=== PATIENT | female | born 1930 | race Caucasian/White ===

== ENCOUNTER → 2017-03-15 | Outpatient (CLI) | payer OTHER, BC | LOC: BHFA 08:30 | PROVIDERS: ATTEND Internal Medicine | DX: I47.1 Supraventricular tachycardia (principal); R94.31 Abnormal electrocardiogram [ECG] [EKG] ==

== ENCOUNTER → 2017-08-23 | Outpatient (CLI) | payer OTHER, BC | LOC: BHFA 15:30 | PROVIDERS: ATTEND Internal Medicine Cardiovascular Disease | DX: M79.609 Pain in unspecified limb (principal) ==

== ENCOUNTER 2018-02-27 00:13 | Inpatient (IN) | payer OTHER, BC ==
--- NOTE | 2018-02-27 00:17 | EDPHY ---
H & P Time Seen by Provider: 02/27/18 00:17 HPI/ROS: HPI CHIEF COMPLAINT: Chest pain, recent cardiac catheterization with stent placement at [facility]. HISTORY OF PRESENT ILLNESS: 87-year-old female, presents emergency room by private vehicle with her son for chest pain. Patient 5 days ago or Wednesday night went to [facility] for chest pain and was diagnosed with having a heart attack she states. She states she received cardiac catheterization to right groin with 1 drug eluting stent she believes to be the right coronary artery. She was told "she just made in time"she presents emergency room with chest pain similar to her previous chest pain she had earlier in the week. It is substernal at the end of her breast bone it does not radiate anywhere. She denies any jaw pain or arm pain, denies neck pain, denies back pain. The pain is substernal, dull, and started a half an hour ago she immediately came here to the emergency room by private vehicle with her son. She states that she skipped today of her medications including her Plavix. She was discharged on Wednesday did not get her medications filled till Wednesday. Current this time pain is 3/10. Past Medical History: Thyroid disease, hyperlipidemia, coronary artery disease with stent recent new stent, CLL Past Surgical History: PTCA through right groin stent placement. Social History: Denies daily use of drugs alcohol tobacco. Family History: Noncontributory ROS REVIEW OF SYSTEMS: A comprehensive 10 point review of systems is otherwise negative aside from elements mentioned in the history of present illness. Exam Constitutional elderly, frail, nontoxic triage nursing summary reviewed, vital signs reviewed, awake/alert. Eyes normal conjunctivae and sclera, EOMI, PERRLA. HENT normal inspection, atraumatic, moist mucus membranes, no epistaxis, neck supple/ no meningismus, no raccoon eyes. Respiratory clear to auscultation bilaterally, normal breath sounds, no respiratory distress, no wheezing. Cardiovascular rate normal, regular rhythm, no murmur, no edema, distal pulses normal. Gastrointestinal soft, non-tender, no rebound, no guarding, normal bowel sounds, no distension, no pulsatile mass. Genitourinary no CVA tenderness. Musculoskeletal right groin site with a cardiac catheterization was performed is clean, dry and intact bandage in place no hematoma. no midline vertebral tenderness, full range of motion, no calf swelling, no tenderness of extremities , no meningismus, good pulses, neurovascularly intact. Skin pink, warm, & dry, no rash, skin atraumatic. Neurologic awake, alert and oriented x 3, AAOx3, moves all 4 extremities equally, motor intact, sensory intact, CN II-XII intact, normal cerebellar, normal vision, normal speech. Psychiatric normal mood/affect. Heme/Lymph/Immune no lymphadenopathy. Differential diagnosis includes but is not limited to: ACS, aortic dissection, coronary artery laceration, in stent thrombosis, atypical chest pain, pneumothorax, pneumonia, pulmonary embolism, aortic dissection, congestive heart failure, tumor, musculoskeletal pain, esophageal pain, GERD, peptic ulcer disease, pancreatitis Medical Decision Making: Plan for this patient IV establishment full classroom monitor obtain EKG, obtain troponin, blood work, rule out coronary syndrome with troponin, chest x-ray, will obtain reports from [facility] will obtain vp lab report. 1234: At this time obtain medical force from [facility]. Re-evaluation: EKG interpretation by me on record in [facility] system. Impression time of EKG 0025, this is sinus rhythm rate of 73, LVH present. Q-waves noted in lead [address] elevation no ST depression no significant T-wave abnormalities. No evidence of acute ischemia on this EKG. Patient's troponin noted be elevated 0.67 this is most likely elevated from the recent cardiac catheterization [facility]. Addition the patient's D-dimer is elevated 2.25. In the setting of a recent cardiac catheterization with a positive D-dimer I will proceed with CT angiogram of the chest rule out aortic dissection given recent right groin catheterization it is a rare complication of aortic dissection. CT angiogram was performed due to elevated D-dimer this does show a right middle lobe and right upper lobe pulmonary embolism. Small volume. Additionally the aorta does have a descending aortic aneurysm measuring 4 cm. No dissection. Given the patient's elevated troponin, elevated D-dimer, pulmonary embolism seen on CT scan recent cardiac catheterization in the setting of chest pain will admit to the hospitalist service for further evaluation of this. I have ordered this patient Lovenox 1 milligram/kilogram. 0202: Of the patient about CT angiogram results of pulmonary emboli. Lovenox 1 milligram/kilogram has been ordered. No evidence aortic dissection. Plan will be for admission today for chest pain evaluation PEs and recent cardiac catheterization. Spoke with the hospitalist service Dr. Galindo Who agrees to admit. Source: Patient, Family Constitutional: Initial Vital Signs Temperature (C) 36.3 C 02/27/18 00:16 Heart Rate 77 02/27/18 00:16 Respiratory Rate 16 02/27/18 00:16 Blood Pressure 154/87 H 02/27/18 00:16 O2 Sat (%) 95 02/27/18 00:16 O2 Delivery Mode Nasal Cannula O2 (L/minute) 2 Allergies/Adverse Reactions: No Known Allergies Allergy (Verified 02/27/18 11:33) Home Medications: Medication Instructions Recorded ALPRAZolam [Xanax 0.25 MG (*)] 0.25 mg PO HS PRN 02/27/18 Aspirin [Aspirin 81mg (*)] 81 mg PO DAILY@06 02/27/18 Atorvastatin Calcium [Lipitor 20 20 mg PO DAILY 02/27/18 mg (*)] Clopidogrel Bisulfate [Clopidogrel] 75 mg PO DAILY 02/27/18 Hyoscyamine Sulfate [Levsin, 0.125 mg PO TID PRN 02/27/18 Hyomax-Sl 0.125 mg (*)] Levothyroxine [Synthroid 125 mcg 125 mcg PO DAILY06 02/27/18 (*)] Lisinopril [Zestril 5 mg (*)] 5 mg PO DAILY 02/27/18 Multivitamin/Iron/Folic Acid 1 each PO DAILY 02/27/18 [Multivitamin with Iron Tablet] Ondansetron HCl [Zofran] 8 mg PO PRN PRN 02/27/18 Pantoprazole Sodium [Protonix 40mg 40 mg PO DAILY 02/27/18 (*)] busPIRone [Buspar (*)] 7.5 mg PO BID 02/27/18 clonazePAM [Klonopin (*)] 0.5 mg PO TID PRN 02/27/18 Medical Decision Making - Data Points Laboratory Results: Laboratory Results 02/27/18 00:35 02/27/18 00:35 Medications Given: Aspirin (Aspirin) 81 mg PO DAILY@06 O[facility] Stop: 08/26/18 14:57 Last Admin: 02/27/18 15:56 Dose: 81 mg Buspirone HCl (Buspar) 7.5 mg PO BID [facility] Stop: 08/26/18 20:59 Last Admin: 02/27/18 20:46 Dose: Not Given Clopidogrel Bisulfate (Plavix) 75 mg PO DAILY [facility] Stop: 08/26/18 14:59 Last Admin: 02/27/18 15:56 Dose: 75 mg Enoxaparin Sodium (Lovenox) 70 mg SC BID [facility] Stop: 08/26/18 08:59 Last Admin: 02/27/18 20:46 Dose: 70 mg Discontinued Medications Aspirin (Aspirin) 324 mg PO EDNOW ONE Stop: 02/27/18 00:29 Last Admin: 02/27/18 00:43 Dose: 324 mg Enoxaparin Sodium (Lovenox) 60 mg SC EDNOW ONE Stop: 02/27/18 02:31 Last Admin: 02/27/18 02:11 Dose: 60 mg Enoxaparin Sodium (Lovenox) 60 mg SC EDNOW ONE Stop: 02/27/18 02:41 Last Admin: 02/27/18 03:16 Dose: Not Given Sodium Chloride (Ns) 1,000 mls @ 0 mls/hr IV EDNOW ONE; Wide Open PRN Reason: Protocol Stop: 02/27/18 00:29 Last Admin: 02/27/18 00:43 Dose: 1,000 mls Point of Care Test Results: Chemistry 02/27/18 00:37 POC Troponin I 0.67 ng/mL H ng/mL (0.00-0.08) Departure - Departure Disposition: [facility] Inpatient Acute Clinical Impression: Chest pain Qualifiers: Chest pain type: unspecified Qualified Code(s): R07.9 - Chest pain, unspecified Pulmonary embolism Qualifiers: Pulmonary embolism type: other Chronicity: acute Acute cor pulmonale presence: without acute cor pulmonale Qualified Code(s): I26.99 - Other pulmonary embolism without acute cor pulmonale Condition: Fair
--- NOTE | 2018-02-27 00:27 | CPEKG ---
Heart Rate: 73 RR Interval: 822 P-R Interval: 204 QRSD Interval: 86 QT Interval: 400 QTC Interval: 441 P Arden: 42 QRS Arden: -35 T Wave Arden: 38 EKG Severity - ABNORMAL ECG - EKG Impression: SINUS RHYTHM EKG Impression: LEFT AXIS DEVIATION EKG Impression: LEFT VENTRICULAR HYPERTROPHY Electronically Signed By: Martin Arbaham 27-Feb-2018 06:43:41
[2018-02-27] MEDS ORDERED: NITROGLYCERIN 0.4 MG BTL SL PRN ×3 (00:28→03:40)
[2018-02-27] MEDS ORDERED: ASPIRIN 81 MG CHEWABLE TAB PO ONE (00:28)
[2018-02-27] MEDS ORDERED: NS 1,000 ML IV ONE (00:28)
[2018-02-27 00:49] LABS: INR 0.88 (0.83-1.16); PROTIME(PATIENT) 12.2 SEC (12.0-15.0)
[2018-02-27] MEDS ORDERED: IOPAMIDOL (ISOVUE 370) 100 ML BTL IV ONE (01:06)
[2018-02-27] MEDS ORDERED: ENOXAPARIN 60 MG/0.6 ML SYR SC ONE ×3 (01:44→02:40)
[2018-02-27] MEDS ORDERED: ACETAMINOPHEN 325 MG TAB PO PRN ×2 (02:22→03:40)
[2018-02-27] MEDS ORDERED: ONDANSETRON 4 MG/2 ML VIAL IVP PRN ×2 (02:22→03:40)
[2018-02-27] MEDS ORDERED: ONDANSETRON DISINTEGRATING 4 MG TAB PO PRN ×3 (02:22→14:57)
[2018-02-27] MEDS ORDERED: LORazepam 0.5 MG TAB PO PRN ×2 (02:22→03:40)
[2018-02-27 02:56] LABS: PLATELET COUNT 144 10^3/uL (150-400)
--- NOTE | 2018-02-27 04:35 | PDGENHP ---
History and Physical - Chief Complaint Chest pain, shortness of breath - History of Present Illness Source-patient able to provide majority of the history. Overall is a fair historian. EMR was reviewed and case discussed with ED provider. HEIDY was also reviewed for recent hospital stay at [facility]. HPI - pleasant 87-year-old female with past medical history significant for CAD with recent STEMI 4 days ago s/p PCI with CHELLE x1 to distal RCA wtih 100% occlusion at [facility]. Her course was complicated by VFib arrest x2 with defibrillation even before cardiac cath commenced. She did have bradycardia during her hospital stay that required placement of a temporary transvenous pacer. Patient was just discharged Wednesday p.m. She did not receive her dosing of her evening medications which according to discharge summary med list on would have been Lipitor and Xanax as patient had not yet filled her prescriptions. Patient is able to report what her Plavix tab look like and states she did not miss any of these doses. She is pretty sure she took her aspirin which would have been in the morning as well. This evening at approximately 10:00 p.m. While trying to go to bed patient reports that she developed low sternal dull pressure pain which was reminiscent of her recent STEMI without the the previously associated symptoms today of radiating chest pain, diaphoresis, nausea vomiting. Patient reports that even before her STEMI she had been experiencing some dyspnea. She continued to have some shortness of breath at discharge which did appear to improve with diuresis per review of records. Patient states that she has continued to have some mild dyspnea and minimal ankle swelling. She denies any orthopnea or PND. In the emergency department patient received a full dose aspirin as well as nitroglycerin with resolution of her pain. Further evaluation revealed patient had a elevated D-dimer and subsequently went for CTA which was revealing for mild right upper and right lower subsegmental PEs. She received Lovenox in the emergency department at time of interview on the PCU floor patient reports that her symptoms had resolved entirely. History Information - Allergies/Home Medication List Allergies/Adverse Reactions: No Known Allergies Allergy (Unverified 02/27/18 00:19) Home Medications: ALPRAZolam 02/27/18 [Last Taken Unknown] Allopurinol 02/27/18 [Last Taken Unknown] Aspirin 02/27/18 [Last Taken Unknown] Atorvastatin Calcium 02/27/18 [Last Taken Unknown] CLONAZEPAM 02/27/18 [Last Taken Unknown] Clopidogrel 02/27/18 [Last Taken Unknown] Hyoscyamine Sulfate 02/27/18 [Last Taken Unknown] Levothyroxine 02/27/18 [Last Taken Unknown] Lisinopril 02/27/18 [Last Taken Unknown] Multivit,Calc,Mins/Iron/Folic 02/27/18 [Last Taken Unknown] Pantoprazole Sodium 02/27/18 [Last Taken Unknown] busPIRone 02/27/18 [Last Taken Unknown] I have personally reviewed and updated: family history, medical history, social history, surgical history - Past Medical History Additional medical history: STEMI/ CAD s/p PCI with CHELLE to distal RAD with associated VFib arrest, and bradycardia requiring temporary transvenous pacer. Hypothyroidism. Anxiety. Osteoarthritis. Urinary incontinence. GERD. CLL undergoing treatment with gazyva (followed by Dr. Cowan). Gout. - Surgical History Additional surgical history: Cardiac cath with CHELLE to distal RCA 100% occlusion 02/22/18. Tonsillectomy adenoidectomy. Cholecystectomy. Previous charting noting back surgery - Family History Additional family history: Father with history CAD. Mother with history of breast cancer cancer - Social History Smoking Status: Former smoker Tobacco Use: Cigarettes (Patient with a previous history of rare social cigarette use none recently) Alcohol Use: Occasionally Drug Use: None Additional social history: Patient lives independently at home. She has good support from her son who lives locally. Cor status-DNR DNI. Review of Systems Review of Systems: ROS: 10pt was reviewed & negative except for what was stated in HPI & below Constitutional: Denies: chills, fever, weakness EENMT: Reports: nose congestion, other (Postnasal drip). Denies: blurred vision , sore throat Cardiac: Reports: chest pain, edema (Bilateral ankles), palpitations (With elevated blood pressures nothing recently). Denies: lightheadedness, syncope Respiratory: Reports: cough (Chronic cough related to postnasal drip nonproductive), shortness of breath, other (See HPI) Gastrointestinal: Reports: abdominal distention (Associated with constipation), constipation. Denies: abdominal pain, nausea Genitourinary: Reports: incontinence. Denies: dysuria, hematuria, urgency Muscolosketal: Reports: no symptoms Skin: Reports: no symptoms Neurological: Reports: no symptoms. Denies: weakness Hematologic/Lymphatic: Reports: blood clots (Newly diagnosed), easy bruising Physical Exam Physical Exam: Selected Entries 02/27/18 00:16 Blood Pressure Automatic Method Heart Rate 77 Respiratory 16 Rate O2 Sat (%) 95 Temperature (C) 36.3 C Blood Pressure 154/87 H Mean Arterial 109 H Pressure (MAP) O2 Delivery Room Air Mode Temperature Oral Source Temp Pulse Resp BP Pulse Ox 36.3 C 67 19 138/61 H 96 02/27/18 00:16 02/27/18 03:00 02/27/18 03:00 02/27/18 03:00 02/27/18 03:00 Constitutional: no apparent distress, not in pain, chronically ill appearing, other (Pleasant elderly female is resting comfortably in bed awake. In good spirits. NAD.) Eyes: PERRL (Slightly decreased reactivity light bilaterally but symmetric.), anicteric sclera, EOMI, No scleral injection Ears, Nose, Mouth, Throat: moist mucous membranes, No poor dentition, No hard of hearing Cardiovascular: regular rate and rhythym, no murmur, rub, or gallop, edema ( Trace swelling bilateral ankles.), other (Right femoral cath site-dry clean and intact. Tegaderm is over the area. No surrounding erythema.) Peripheral Pulses: 1+: dorsalis-pedis (R), dorsalis-pedis (L) Respiratory: no respiratory distress, no rales or rhonchi, clear to auscultation , No expiratory wheeze, No inspiratory crackles, No respiratory distress Gastrointestinal: normoactive bowel sounds, soft, non-tender abdomen, no palpable masses, distension (Soft but full abdomen.), No tenderness Genitourinary: no bladder tenderness, No carranza in urethra Skin: warm, normal color, no rashes or abrasions, No rash Musculoskeletal: full muscle strength (Patient does request a little assistance when trying to sit upright in bed otherwise is able to move all her extremities with strength and 5/5 upper lower extremities.) Neurologic: AAOx3, sensation intact bilaterally, other (Grossly nonfocal exam.) , No facial droop Psychiatric: interacting appropriately, not anxious, not encephalopathic, thought process linear, No poor insight, No poor judgement, No poor memory Lab Data & Imaging Review 02/27/18 00:35 02/27/18 00:35 WBC 4.89 10^3/uL (3.80-9.50) 02/27/18 00:35 RBC 3.60 10^6/uL (4.18-5.33) L 02/27/18 00:35 Hgb 11.2 g/dL (12.6-16.3) L 02/27/18 00:35 Hct 35.0 % (38.0-47.0) L 02/27/18 00:35 MCV 97.2 fL (81.5-99.8) 02/27/18 00:35 MCH 31.1 pg (27.9-34.1) 02/27/18 00:35 MCHC 32.0 g/dL (32.4-36.7) L 02/27/18 00:35 RDW 14.6 % (11.5-15.2) 02/27/18 00:35 Plt Count 144 10^3/uL (150-400) L 02/27/18 00:35 MPV 11.0 fL (8.7-11.7) 02/27/18 00:35 Neut % (Auto) 50.7 % (39.3-74.2) 02/27/18 00:35 Lymph % (Auto) 35.8 % (15.0-45.0) 02/27/18 00:35 [place] % (Auto) 8.6 % (4.5-13.0) 02/27/18 00:35 Eos % (Auto) 4.3 % (0.6-7.6) 02/27/18 00:35 Baso % (Auto) 0.6 % (0.3-1.7) 02/27/18 00:35 Nucleat RBC Rel Count 0.0 % (0.0-0.2) 02/27/18 00:35 Absolute Neuts (auto) 2.48 10^3/uL (1.70-6.50) 02/27/18 00:35 Absolute Lymphs (auto) 1.75 10^3/uL (1.00-3.00) 02/27/18 00:35 Absolute Monos (auto) 0.42 10^3/uL (0.30-0.80) 02/27/18 00:35 Absolute Eos (auto) 0.21 10^3/uL (0.03-0.40) 02/27/18 00:35 Absolute Basos (auto) 0.03 10^3/uL (0.02-0.10) 02/27/18 00:35 Absolute Nucleated RBC 0.00 10^3/uL (0-0.01) 02/27/18 00:35 Immature Gran % 0.0 % (0.0-1.1) 02/27/18 00:35 Immature Gran # 0.00 10^3/uL (0.00-0.10) 02/27/18 00:35 PT 12.2 SEC (12.0-15.0) 02/27/18 00:35 INR 0.88 (0.83-1.16) 02/27/18 00:35 APTT 22.5 SEC (23.0-38.0) L 02/27/18 00:35 D-Dimer 2.25 ug/mLFEU (0.00-0.50) H 02/27/18 00:35 Sodium 141 mEq/L (135-145) 02/27/18 00:35 Potassium 4.6 mEq/L (3.3-5.0) 02/27/18 00:35 Chloride 111 mEq/L (97-110) H 02/27/18 00:35 Carbon Dioxide 25 mEq/l (22-31) 02/27/18 00:35 Anion Gap 5 mEq/L (8-16) L 02/27/18 00:35 BUN 50 mg/dL (7-23) H 02/27/18 00:35 Creatinine 1.2 mg/dL (0.6-1.0) H 02/27/18 00:35 Estimated GFR 43 02/27/18 00:35 Glucose 108 mg/dL (70-100) H 02/27/18 00:35 Calcium 9.4 mg/dL (8.5-10.4) 02/27/18 00:35 Magnesium 2.4 mg/dL (1.6-2.3) H 02/27/18 00:35 Total Bilirubin 0.4 mg/dL (0.1-1.4) 07/22/18 00:35 Conjugated Bilirubin 0.4 mg/dL (0.0-0.5) 02/27/18 00:35 Unconjugated Bilirubin 0.0 mg/dL (0.0-1.1) 02/27/18 00:35 AST 33 IU/L (14-46) 02/27/18 00:35 ALT 29 IU/L (9-52) 02/27/18 00:35 Alkaline Phosphatase 58 IU/L (38-126) 02/27/18 00:35 POC Troponin I 0.67 ng/mL (0.00-0.08) H 02/27/18 00:37 NT-Pro-B Natriuret Pep 4560 pg/mL (0-450) H 02/27/18 00:35 Total Protein 5.7 g/dL (6.3-8.2) L 02/27/18 00:35 Albumin 3.3 g/dL (3.5-5.0) L 02/27/18 00:35 Lipase 174 IU/L (23-300) 02/27/18 00:35 Imaging Review: Chest x-ray image reviewed myself report is still pending. No acute infiltrates. Tortuous aorta. Mild cardiomegaly. Visualized and Interpreted Chest x-ray results: Yes Chest X-Ray results: no infiltrate Visualized and Interpreted imaging results: Yes Interpretation: Preliminary report for CTA of the chest was reviewed. Is noted below: CT PE study. Mild volume PE subsegmental branches RUL and RLL. Extensive calc and noncalc plaques in thoracic aorta w/o dissection. Mild 4cm TAA just above diaphragm. Mild interstitial lung dz. Spoke w Dr Huitron at 145am. Finer Visualized and Interpreted EKG results: Yes EKG additional interpertation: NSR 70s. Lad. LVH. No acute ST changes. QTC 441. Assessment & Plan Assessment: Pleasant 87-year-old female with history of CAD with recent STEMI s/p PCI and CHELLE to distal RCA 4 days ago, anxiety, hypothyroidism, GERD, CLL who presents emergency department today with complaints of lower sternal chest pain and dyspnea. #Chest pain (Acute) - D-dimer was noted to be elevated and CT was positive for mild subsegmental bilateral PEs. Patient has received therapeutic dosing of Lovenox in the emergency department which will plan to continue until we can ascertain which anticoagulant would be both covered by insurance and provide most benefit for the patient to ensure long-term success of compliance. patient status post recent PCI with stent. Patient does recall taking her Plavix and she thinks aspirin in the morning without missing any doses. She missed single dose of her evening medications which according to discharge summary should have been Lipitor and Xanax. Patient received a dose nitroglycerin in the emergency department as well as Lovenox. Her chest pain and dyspnea have improved. Patient's troponin is minimally elevated at 0.6 but not surprising her peak troponin last measured per [facility] records was 14.5 after [place]. Patient without any evidence of decompensated CHF although she did have some mild diminished LV EF (46-50%) post [place]. Will plan to continue patient 's lisinopril. She was not discharged on beta pb due to bradycardia requiring temporary transvenous pacer. Heart rate currently in the 60s to 70s. Continue aspirin and Plavix will need to monitor closely for any evidence of bleeding given addition of anticoagulation. Patient does have a mild anemia and minimal thrombocytopenia with a history of CLL undergoing Gazyva therapy. #Pulmonary embolism (Acute) - Lovenox received in the emergency department will continue until best long-term anticoagulation option can be determined in the morning. Patient without any hypoxia or tachycardia. Room air challenge to ensure patient does not require oxygen supplementation. #CAD - continue atorvastatin, aSA, plavix, lisinopril. not on bb 2/2 hx of bradycardia post [place] requiring temporary pacer. #nancy - patient received 1 liter IVF in ED. some mild LV dysfunction. tolerating po. holding further fluids at this time. repeat bmp in AM. #anemia - no evidence of active bleeding. monitor with DAPT and now anticoagulation. #thrombocytopenia - minimally decreased. no active bleeding. monitor with DAPT and anticoagulation. # mild thoracic aortic aneurysm - noted on CTA. 3.9 cm. continued monitoring outpatient. #hypoalbuminemia - likely related to patient's acute and chronic medical issues. chronic medical issues # hypothyroidism - resume patient l-thyroxine. recent TSH obtained at [facility] reveals TSH >9.0 obtained surrounding AMI. did not locate additional TFTs via [facility]. follow up with PCP for re-testing in a few weeks. #CLL - patient receiving gazyva infusions. followed by Dr. Randhawa #gerd - protonix #anxiety - supportive care. resume busbar and xanax prn. #constipation - bowel regimen ordered FEN - SLIV. s/p 1 liter IVF in ED. electrolyte monitoring and replacement if needed. NPO pending repeat cardiac enzymes and Cardiology evaluation. PPX-SCDs. Therapeutic Lovenox received in the ED. Will continue until long- term anticoagulation can be decided on by day team. Cor status-DNR DNI. Disposition patient admitted to observation status on PCU floor for close cardiac monitoring. Her chest pain has resolved. Patient has been started on therapeutic anticoagulation and her dyspnea has resolved.
--- NOTE | 2018-02-27 09:49 | HOSPPROG ---
Hospitalist Progress Note Assessment/Plan: # acute PE - cont lovenox today - will change to NOAC prior to dc (discussed with Dr Randhawa) - will plan for echo before she leaves # CAD, recent STEMI s/p PCI top RCA, elev trop - suspect elev trop from STEMI - Dr Henderson to consult - cont asa/plavix/statin # CLL, currently under treatment with Dr Randhawa with gazyva # thoracic aortic aneurysm - 3.9cm; outpatient follow-up # gerd - protonix # anxiety - buspar, xanax Subjective: hungry; CP resolved Objective: Vital Signs Temp Pulse Resp BP Pulse Ox 36.8 C 63 12 153/75 H 98 02/27/18 07:48 02/27/18 07:48 02/27/18 07:48 02/27/18 07:48 02/27/18 07:48 02/26/18 02/27/18 02/28/18 05:59 05:59 05:59 Intake Total 250 Balance 250 PT 12.2 SEC (12.0-15.0) 02/27/18 00:35 INR 0.88 (0.83-1.16) 02/27/18 00:35 chart reviewed tele reviewed discussed with Dr Henderson 35 minutes of direct, face to face patient care from 9:10-9:45 - Physical Exam Constitutional: no apparent distress, not in pain Cardiovascular: regular rate and rhythym, no murmur, rub, or gallop Respiratory: no respiratory distress, no rales or rhonchi, clear to auscultation ICD10 Worksheet Patient Problems: Problems Problem Status Onset Chest pain Acute Pulmonary embolism Acute
[2018-02-27] MEDS: ENOXAPARIN 80 MG/0.8 ML SYR SC SCH ×2 (10:22→20:46)
--- NOTE | 2018-02-27 10:57 | ASMTCMCOM ---
CM Note CM Note Notes: 02/27/2018 Case Management Note Met w/pt. Signed MENDEZ. Pt admitted for assessment and treatment of possible PE and chest pain. Pt lives independently in her own home in [facility]. 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 Her son Chalo [phone] lives nearby. Pt has tractor mechanic helper for lawn care and housekeeping. Pt is able to drive and has no difficulty obtaining groceries or preparing meals. There are no PT or OT evals ordered at this time. Dr. Randhawa is coordinating her cancer treatment. Case Management d/c poc: anticipating independent with follow up as directed. Case Management available if needs change. Date Signed: 02/27/2018 10:57 AM Electronically Signed By:Alaina Garrett RN
[2018-02-27] MEDS ORDERED: clonazePAM 0.5 MG TAB PO PRN (14:57)
[2018-02-27] MEDS ORDERED: HYOSCYAMINE SULFATE 0.125 MG TAB PO PRN (14:57)
[2018-02-27] MEDS ORDERED: ALPRAZolam 0.25 MG TAB PO PRN (14:57)
[2018-02-27] MEDS: CLOPIDOGREL BISULFATE 75 MG TAB PO SCH (15:56)
[2018-02-27] MEDS: ASPIRIN 81 MG CHEWABLE TAB PO SCH (15:56)
[2018-02-27] MEDS: busPIRone 5 MG TAB PO SCH (20:46)
[2018-02-28] MEDS: ASPIRIN 81 MG CHEWABLE TAB PO SCH (05:38)
[2018-02-28] MEDS: LEVOTHYROXINE 125 MCG TAB PO SCH (05:38)
[2018-02-28] MEDS ORDERED: SODIUM CL NASAL 45 ML BTL EACHNARE PRN (08:04)
[2018-02-28] MEDS: ATORVASTATIN CALCIUM 20 MG TAB PO SCH (08:20)
[2018-02-28] MEDS: CLOPIDOGREL BISULFATE 75 MG TAB PO SCH (08:20)
[2018-02-28] MEDS: PANTOPRAZOLE SODIUM 40 MG TAB PO SCH (08:20)
[2018-02-28] MEDS: busPIRone 5 MG TAB PO SCH ×2 (08:20→22:35)
[2018-02-28] MEDS: ENOXAPARIN 80 MG/0.8 ML SYR SC SCH ×2 (08:21→22:35)
[2018-02-28] MEDS: LISINOPRIL 5 MG TAB PO SCH (08:21)
[2018-02-28] MEDS: MULTIVITAMINS W-MINERALS 1 EACH TAB PO SCH (08:21)
--- NOTE | 2018-02-28 13:35 | HOSPPROG ---
Hospitalist Progress Note Assessment/Plan: # acute PE - cont lovenox today - will change to NOAC prior to dc (discussed with Dr Randhawa) - check echo today # CAD, recent STEMI s/p PCI top RCA, elev trop - suspect elev trop from STEMI - cont asa/plavix/statin # CLL, currently under treatment with Dr Randhawa with patrice # thoracic aortic aneurysm - 3.9cm; outpatient follow-up # gerd - protonix # anxiety - buspar, xanax Subjective: c/o ongoing dyspnea; not clearly exertional; seen with her dtr in law Objective: Vital Signs Temp Pulse Resp BP Pulse Ox 36.7 C 61 20 147/73 H 95 02/28/18 11:00 02/28/18 11:00 02/28/18 11:00 02/28/18 11:00 02/28/18 11:00 Laboratory Results 02/28/18 03:47 02/27/18 02/28/18 03/01/18 05:59 05:59 05:59 Intake Total 250 600 Balance 250 600 PT 12.2 SEC (12.0-15.0) 02/27/18 00:35 INR 0.88 (0.83-1.16) 02/27/18 00:35 echo personally reviewed - Physical Exam Constitutional: no apparent distress, appears nourished Eyes: anicteric sclera Ears, Nose, Mouth, Throat: hearing normal Cardiovascular: No edema Respiratory: no respiratory distress, no rales or rhonchi, clear to auscultation Gastrointestinal: No distension Genitourinary: No carranza in urethra Skin: warm Musculoskeletal: full muscle strength Neurologic: AAOx3 ICD10 Worksheet Patient Problems: Problems Problem Status Onset Chest pain Acute Pulmonary embolism Acute
--- NOTE | 2018-02-28 15:56 | ECHO ---
[email or web address] [address] [address] Main: [phone] Fax: [email or web address] Echocardiogram Name: JIM TORRES MR#: [id number] Study Date: 02/28/2018 Study Time: 02:01 PM Date of : 1930 Age: 87 year(s) Height: 170.2 cm (67 in.) Weight: 72.12 kg (159 lb.) BSA: 1.83 m2 Gender: Female Examination: Echo Indication: Cardiac: dyspnea Image Quality: Adequate Contrast: Requested by: Robbie Rahman BP: 147 mmHg/73 mmHg Heart Rate: Rhythm: Indication: Cardiac: dyspnea Procedure Staff Set Up Operator: Krupa Castro RDCS Reading Physician: Alex Henderson MD Requesting Provider: Conclusions: Normal size left ventricle. Mild concentric LV hypertrophy. Normal global systolic LV function. EF is 60 %. No regional wall motion abnormality. Diastolic dysfunction is present. . Normal size right ventricle. The left atrium is mildly dilated. The mitral valve is normal in appearance and function. Mild to moderate mitral regurgitation. No mitral stenosis is present. Aortic sclerosis is present. There is no significant aortic valve regurgitation. No aortic valve stenosis is present. Mild tricuspid regurgitation is present. The pulmonary artery pressure is normal. Right ventricular systolic pressure measures 33mmHg. There is no pulmonic regurgitation seen. Normal size ascending aorta measuring 3.1 cm. No previous. Measurements: Chambers Valvular Assessment AV/MV Valvular Assessment TV/PV Normal Normal Normal Name Value Range Name Value Range Name Value Range Ao Margie (2D): 3.1 cm (1.4 cm-2.6 AV Vmax: 1.58 m/s (1 m/s-1.7 TR Vmax: 2.65 mm/s ( - ) cm) m/s) TR PGmax: 28 mmHg ( - ) IVSd (2D): 1.3 cm (0.6 cm-1.1 AV maxP mmHg ( - ) syst. PAP: 33 mmHg ( - ) cm) AV meanP mmHg ( - ) Patient: JIM TORRES Study Date: 02/28/2018 Page 1 of 2 02:01 PM LVDd (2D): 4.3 cm (3.9 cm-5.3 NASH (VTI): 2.2 cm ( - ) PV Vmax: 0.92 m/s (0.6 m/s-0.9 cm) MV E Vmax: 0.56 m/s ( - ) m/s) LVDs (2D): 3.1 cm (2.1 cm-4 MV A Vmax: 0.99 m/s ( - ) PV PGmax: 3 mmHg ( - ) cm) MV E/A: 0.57 ( - ) LVPWd (2D): 1.2 cm ( - ) MV PHT: 0.103 s ( - ) LVOTd 1.9 cm 1.9 cm mm MVA (PHT): 2.1 s ( - ) LVEF (BP): 60 % (>=55 %) RVDd(2D): 3.4 cm (1.9 cm-3.8 cmmm) Continued Measurements: Chambers Valvular Assessment AV/MV Valvular Assessment TV/PV Name Value Name Value Name Value LADs: 3.3 cm MV DecTime: 306 m/s CVP (est.): 5 mmHg LADs Lon.0 cm MV E' Septal: 0.05 m/s LA Area: 21.4 cm2 MV E/E' Septal: 10.90 LA Volume: 70 ml MV E/E' Lateral: 6.40 LA Volume Index: 38.3 ml/m2 RA Area: 21.2 cm2 Additional Vessels Name Value Ao Ascendin.1 cm Findings: Left Ventricle: Normal size left ventricle. Mild concentric LV hypertrophy. Normal global systolic LV function. EF is 60 %. No regional wall motion abnormality. Diastolic dysfunction is present. . Right Ventricle: Normal size right ventricle. Left Atrium: The left atrium is mildly dilated. Right Atrium: The right atrium is normal in size. Mitral Valve: The mitral valve is normal in appearance and function. Mild to moderate mitral regurgitation. No mitral stenosis is present. Aortic Valve: The aortic valve is tri-leaflet. Aortic sclerosis is present. There is no significant aortic valve regurgitation. No aortic valve stenosis is present. Tricuspid Valve: The tricuspid valve is normal in appearance and function. Mild tricuspid regurgitation is present. The pulmonary artery pressure is normal. Right ventricular systolic pressure measures 33mmHg. Pulmonic Valve: The pulmonic valve is normal in appearance and function. There is no pulmonic regurgitation seen. Aorta: The aorta is normal. Normal size aortic root measuring 3.1 cm. Normal size ascending aorta measuring 3.1 cm. Pericardium: No pericardial effusion. No pleural effusion. (No Signature Object) Patient: JIM TORRES Study Date: 02/28/2018 Page 2 of 2 02:01 PM [id number]
--- NOTE | 2018-02-28 17:06 | PDMN ---
Medical Necessity Medical necessity: Pt meets INPT criteria per MD as of 02/28/18 and [facility] M-290 Pulmonary Embolism (est. LOS >2 MN for ongoing eval/mgmt of acute PE with ongoing dyspnea; hx recent STEMI s/p PCI, elevated troponin, CLL, thoracic aortic aneurysm).
[2018-02-28] MEDS: DEXAMETHASONE 4 MG TAB PO SCH ×2 (18:35→23:32)
[2018-03-01] MEDS: LEVOTHYROXINE 125 MCG TAB PO SCH (06:03)
[2018-03-01] MEDS: ASPIRIN 81 MG CHEWABLE TAB PO SCH (06:03)
[2018-03-01] MEDS: DEXAMETHASONE 4 MG TAB PO SCH ×2 (06:03→11:33)
[2018-03-01] MEDS: ATORVASTATIN CALCIUM 20 MG TAB PO SCH (08:27)
[2018-03-01] MEDS: LISINOPRIL 5 MG TAB PO SCH (08:28)
[2018-03-01] MEDS: PANTOPRAZOLE SODIUM 40 MG TAB PO SCH (08:29)
[2018-03-01] MEDS: busPIRone 5 MG TAB PO SCH (08:30)
[2018-03-01] MEDS: CLOPIDOGREL BISULFATE 75 MG TAB PO SCH (08:30)
[2018-03-01] MEDS: MULTIVITAMINS W-MINERALS 1 EACH TAB PO SCH (08:31)
[2018-03-01] MEDS: ENOXAPARIN 80 MG/0.8 ML SYR SC SCH (08:31)
[2018-03-01 08:34] VITALS: BP 146/79
--- NOTE | 2018-03-01 12:05 | ASDISCHSUM ---
Discharge Information Plan Status:Home with No Needs Medically Cleared to Leave:03/01/2018 Discharge Date:03/01/2018 CM D/C Disposition:Home, Routine, Self-Care ADT D/C Disposition: Projected Discharge Date:03/01/2018 Transportation at D/C: Discharge Delay Reason: Follow-Up Date:03/01/2018 Discharge Slot: Final Diagnosis: Placement Information Patient Contact Information Contact Name:ARIANE Relationship:Matthew Address: Work Phone: City: [facility] Phone: State/LivePerson Code: Email: Financial Information Financial Class:Medicare Primary Plan Desc:MEDICARE INPATIENT Primary Plan Number:[id number] Secondary Plan Desc:BC OUT OF STATE [facility] Secondary Plan Number:[id number] Assessment Information [facility] CM Progress Note CM Note CM Note Notes: 02/27/2018 Case Management Note Met w/pt. Signed VANESSA. Pt admitted for assessment and treatment of possible PE and chest pain. Pt lives independently in her own home in [place] [place]. 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 Her son Chalo [phone] lives nearby. 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 Pt is able to drive and has no difficulty obtaining groceries or preparing meals. There are no PT or OT evals ordered at this time. Dr. Randhawa is coordinating her cancer treatment. Case Management d/c poc: anticipating independent with follow up as directed. Case Management available if needs change. Date Signed: 02/27/2018 10:57 AM Electronically Signed By:Alaina Garrett RN Case Management Discharge Plan Note Case Management Discharge Discharge Order Complete? Answers: Yes Patient to Obtain Answers: Independently Medications Discharge Comments Notes: 03/01/2018 Case Management Note Pt to discharge home independently with follow up as directed. Pt to follow up with Dr. Randhawa on 03/03/2018. Pt alerted to potential cost for Gloria and is agreeable to paying out of pocket. No further case management d/c needs identified. Date Signed: 03/01/2018 12:04 PM Electronically Signed By:Alaina Garrett RN Intervention Information Intervention Type:*MENDEZ-Signed Date of Service:02/27/2018 10:52 AM Patient Type:Observation Staff Member:QUANG Garrett, Alaina Hours: Discipline: Severity: Comment:
--- NOTE | 2018-03-01 12:06 | ASMTLACE ---
LACE Length of stay for Answers: Less than 1 day current admission Acuity / Level of Answers: Yes Care: Did the patient have an inpatient admission? Comorbidities - select Answers: Any tumor (including all that apply lymphoma or leukemia) Coronary Artery Disease Previous myocardial infarction Other Notes: hypothyroidism, osteoar thr itis, GERD, urinary incontinence, Gout, CLL treated with gazyva # of Emergency department Answers: 1-2 visits in the last 6 months Social determinants Answers: Mental health diagnosis (anxiety, depression, pers onality disorders, etc.) Score: 13 Date Signed: 03/01/2018 12:05 PM Electronically Signed By:Alaina Garrett RN
--- NOTE | 2018-03-01 12:18 | GDS ---
[f rep st] DISCHARGE SUMMARY ALL DIAGNOSES: 1. Acute pulmonary embolus. 2. Coronary artery disease, status post recent ST-elevation myocardial infarction, with a percutaneo us coronary intervention to her right coronary artery. 3. Chronic lymphocytic leukemia, under treatment with Dr. Randhawa. 4. Thoracic aortic aneurysm at 3.9 cm. 5. Gastroesophageal reflux disease. 6. Anxiety. HOSPITAL COURSE: An 87-year-old female, who was recently treated for a STEMI at [facility]. She prese nted with ongoing dyspnea. CT angiogram found mild volume of bilateral pulmonary embolic disease. S he was started on Lovenox. She has tolerated anticoagulation without any issues. On the day of disc harge, she will be transitioned to Eliquis. I have given her 5 mg b.i.d., foregoing the higher dose, because she is already on aspirin, as well as Plavix. I explained to her the risks of bleeding give n these 3 medications, and she understands very well She is treated for her CLL by Dr. Randhawa. She has a followup appointment with him on 03/03 at 9 a. m. BILLING: I spent more than 30 minutes on the day of discharge coordinating care. /[id number]/MODL
== END 2018-03-01 12:45 | disposition home or self-care (01) | DRG 175 ==
LOC: F2W 01:50 → INTOOBSV 01:50 → OBSVTOIN 02-28 13:33
PROVIDERS: ADMIT Family Medicine; ATTEND Student in an Organized Health Care Education/Training Program
DX: I26.99 Other pulmonary embolism without acute cor pulmonale (principal); I25.10 Atherosclerotic heart disease of native coronary artery without angina pectoris; I71.2 Thoracic aortic aneurysm, without rupture; C91.10 Chronic lymphocytic leukemia of B-cell type not having achieved remission; I21.3 ST elevation (STEMI) myocardial infarction of unspecified site; E03.9 Hypothyroidism, unspecified; M19.90 Unspecified osteoarthritis, unspecified site; M10.9 Gout, unspecified; K21.9 Gastro-esophageal reflux disease without esophagitis; F41.9 Anxiety disorder, unspecified; Z66 Do not resuscitate; Z95.5 Presence of coronary angioplasty implant and graft; Z87.891 Personal history of nicotine dependence
CPT/HCPCS: 84484-PO; G0378; J1650; Q9967

== ENCOUNTER 2018-09-08 15:24 | Emergency (ER) | payer OTHER, BC ==
[2018-09-08] MEDS ORDERED: NS 500 ML IV ONE (15:27)
--- NOTE | 2018-09-08 15:51 | EDPHY ---
H & P Time Seen by Provider: 09/08/18 15:27 HPI/ROS: HPI Short of breath, lightheaded. 88-year-old female by private vehicle. This patient was sent from the office of her primary care physician Dr. Dunn. She has a history of CLL, coronary artery disease and pulmonary embolism. She is currently on Eliquis and Plavix. She reports that over the last 2 days she has experienced increased dyspnea with exertion, generalized fatigue and associated lightheadedness. She denies any chest pain. She is not on oxygen at home. She currently is not on chemotherapy. ROS: Constitutional: No fever, no chills. As above. Eyes: No discharge. No changes in vision. ENT: No sore throat. No nasal congestion or rhinorrhea. Respiratory: No cough. As above. Cardiac: No chest pain, no palpitations. Gastrointestinal: No abdominal pain, no vomiting, no diarrhea. Genitourinary: No hematuria. No dysuria or increased frequency with urination. Musculoskeletal: No back pain. No neck pain. No myalgias or arthralgias. Skin: No rashes. Neurological: No headache. No focal weakness or altered sensation. Past medical history: Thoracic aortic aneurysm at 3.9 cm, anxiety, hypertension , GERD, CLL not on chemotherapy now Dr. Randhawa is her oncologist, coronary artery disease/STEMI/PCI to distal RAD with associated VFib arrest, and bradycardia requiring temporary pacemaker. Distal RCA 100% occlusion in February of 2017 Hypothyroidism, osteoarthritis, urinary incontinence, cholecystectomy. She is not on a beta-pb or calcium channel pb. As above. Social history: Former smoker. She lives independently at home. She is from [place] originally. She has good support from her son who lives locally. Cor status is DNR. Physical Exam: General Appearance: Alert, pleasant, she is not in distress. This patient is responding to questions appropriately and in full sentences. This patient appears well-hydrated and well-nourished. Eyes: Pupils equal and round no pallor or injection. No lid edema, erythema or injection. Respiratory: There are no retractions, lungs are clear to auscultation with good air movement bilaterally. No tachypnea. Cardiovascular: Regular rate and rhythm. Bradycardia. No murmur is appreciated. Gastrointestinal: Abdomen is soft and nontender, no masses, bowel sounds normal. No focal tenderness at McBurney's point. No Garrett sign. Neurological: Motor sensory function is grossly intact. Cranial nerves are normal. Gait is normal. Skin: Warm and dry, no rashes. Musculoskeletal: Neck is supple and nontender. Extremities are symmetrical. All joints range without pain or impingement. Psychiatric: No agitation. No depression. Database: EKG: EKG time is 4:11 p.m.; EKG shows a narrow complex sinus bradycardia with a ventricular rate of 53. Left ventricular hypertrophy is noted. The FL, QRS, QT intervals are within normal limits. There are no ST-T wave changes indicative of ischemic or injury pattern. No evidence of right heart strain. Interpreted by me. Imaging: CTA of chest; no evidence of pulmonary embolism or dissection. Her heart is enlarged. There is no pulmonary edema, pleural effusion or pericardial effusion. No significant acute pathology. Results were discussed with staff radiologist Dr. Damion Jay. Procedures: Emergency department course: Triage vital signs reviewed. She is hypertensive with a diastolic pressure of 129, she is bradycardic with a resting heart rate of 54. Pulse oximetry is 96% on room air. She is afebrile. IV was placed. She was placed on a director of cardiac cath lab. She will be given IV normal saline [address] angiogram. She consents to emergency department workup. EKG obtained and reviewed by myself. 4:20 p.m., the patient's creatinine is 1.3. Her BUN is 31. We are currently hydrating her. I discussed obtaining CT angiogram with staff radiologist Dr. Shahram Elliott. He agrees with getting this study. We will hydrate the patient before and after. 5:15 p.m., the patient was re-evaluated, she was resting comfortably. She currently has no complaints. Results of her diagnostic workup were discussed with her. Her vital signs were reviewed. She has been hypertensive in the emergency department but asymptomatic. I discussed admission with her. At this time she does not want to be admitted. I will contact her primary care physician to arrange close follow-up. 5:30 p.m., I spoke with Dr. Mcdaniels who is on-call for her primary care physician Dr. Pineda. They will contact the patient and get her in for follow-up tomorrow in their office. I discussed my concern about her uncontrolled hypertension. The results of her emergency department workup were discussed with Dr. Mcdaniels in detail. 6:00 p.m., the patient was re-evaluated, she is dressed, sitting upright on the gurney and ready to go home. She has been up and ambulatory in the emergency department with a normal gait. Results of her diagnostic testing were discussed with her thoroughly. I discussed follow-up with her primary care physician and my concern about her high blood pressure. Return to emergency department precautions were thoroughly reviewed with her. All of her questions were answered. She was discharged from the emergency department in good condition. Differential Diagnosis: The differential diagnosis on this patient includes but is not limited to congestive heart failure, hypothyroid, urinary tract infection, pulmonary embolism, acute coronary syndrome. This represents a partial list of diagnoses considered. These considerations are based on history, physical exam, past history, reassessment and diagnostic testing. Smoking Status: Former smoker Constitutional: Initial Vital Signs Temperature (C) 36.4 C 09/08/18 15:34 Heart Rate 54 L 09/08/18 15:34 Respiratory Rate 20 09/08/18 15:34 Blood Pressure 164/129 H 09/08/18 15:34 O2 Sat (%) 96 09/08/18 15:34 O2 Delivery Mode Room Air Allergies/Adverse Reactions: No Known Allergies Allergy (Verified 09/08/18 15:34) Home Medications: Medication Instructions Recorded ALPRAZolam [Xanax 0.25 MG (*)] 0.25 mg PO HS PRN 02/27/18 Atorvastatin Calcium [Lipitor 20 20 mg PO DAILY 02/27/18 mg (*)] Clopidogrel Bisulfate [Clopidogrel] 75 mg PO DAILY 02/27/18 Hyoscyamine Sulfate [Levsin, 0.125 mg PO TID PRN 02/27/18 Hyomax-Sl 0.125 mg (*)] Levothyroxine [Synthroid 125 mcg 125 mcg PO DAILY06 02/27/18 (*)] Lisinopril [Zestril 5 mg (*)] 5 mg PO DAILY 02/27/18 Multivitamin/Iron/Folic Acid 1 each PO DAILY 02/27/18 [Multivitamin with Iron Tablet] Ondansetron HCl [Zofran] 8 mg PO PRN PRN 02/27/18 Pantoprazole Sodium [Protonix 40mg 40 mg PO DAILY 02/27/18 (*)] busPIRone [Buspar (*)] 7.5 mg PO BID 02/27/18 Apixaban [Eliquis] 5 mg PO BID #60 tab 03/01/18 Medical Decision Making - Diagnostics Imaging Results: Imaging Impressions Chest/Thorax CTA 09/08/18 16:17 Impression: 1. No evidence for pulmonary embolus. Atherosclerotic change in the thoracic aorta without evidence for dissection. 2. Stable cardiomegaly. No evidence for pericardial effusion. 3. Other stable chronic findings as above. Results called and discussed with Kathie Shelby MD, on 09/08/2018, 16: 56. - Data Points Laboratory Results: 09/08/18 09/08/18 09/08/18 15:58 15:50 15:50 PT 14.7 SEC SEC (12.0-15.0) INR 1.13 (0.83-1.16) APTT 33.5 SEC SEC (23.0-38.0) POC Sodium 143 mEq/L mEq/L (135-145) POC Potassium 3.8 mEq/L mEq/L (3.3-5.0) POC Chloride 112.0 mEq/L H mEq/L (97-110) POC Total CO2 27 mEq/L mEq/L (22-31) POC BUN 31 mg/dL H mg/dL (7-23) POC Creatinine 1.3 mg/dL H mg/dL (0.6-1.0) POC Glucose 94 mg/dL mg/dL (70-100) POC Calcium 10.0 mg/dL mg/dL (8.5-10.4) POC Total Bilirubin 0.7 mg/dL mg/dL (0.1-1.4) POC AST 21 IU/L IU/L (14-46) POC ALT 14 IU/L IU/L (9-52) POC Alk Phosphatase 58 IU/L IU/L (38-126) NT-Pro-B Natriuret Pep 1790 pg/mL H pg/mL (0-450) POC Total Protein 6.6 g/dL g/dL (6.3-8.2) POC Albumin 3.9 g/dL g/dL (3.5-5.0) TSH 0.322 uIU/mL L uIU/mL (0.465-4.680) Medications Given: Discontinued Medications Sodium Chloride (Ns) 500 mls @ 1,000 mls/hr IV EDNOW ONE PRN Reason: Protocol Stop: 09/08/18 15:56 Last Admin: 09/08/18 16:00 Dose: 500 mls Point of Care Test Results: CBC CBC Collection Date 09/08/18 CBC Collection Time 15:50 WBC 5.4 RBC 4.85 HGB 14.9 HCT 44.9 PLT 217 Neut # 2.1 Neut 38.2 LYMPH # 2.8 LYMPH 52.0 Other WBC # 0.5 Other WBC 9.8 MCV 92.6 Chemistry 09/08/18 15:58 POC Sodium 143 mEq/L mEq/L (135-145) POC Potassium 3.8 mEq/L mEq/L (3.3-5.0) POC Chloride 112.0 mEq/L H mEq/L (97-110) POC Total CO2 27 mEq/L mEq/L (22-31) POC BUN 31 mg/dL H mg/dL (7-23) POC Creatinine 1.3 mg/dL H mg/dL (0.6-1.0) POC Glucose 94 mg/dL mg/dL (70-100) POC Calcium 10.0 mg/dL mg/dL (8.5-10.4) POC Total Bilirubin 0.7 mg/dL mg/dL (0.1-1.4) POC AST 21 IU/L IU/L (14-46) POC ALT 14 IU/L IU/L (9-52) POC Alk Phosphatase 58 IU/L IU/L (38-126) POC Total Protein 6.6 g/dL g/dL (6.3-8.2) POC Albumin 3.9 g/dL g/dL (3.5-5.0) Urine Dip Collection Date 09/08/18 Collection Time 15:45 Specific [place] (1.002-1.030) 1.020 PH (5.0-7.5) 6.5 Leukocytes (Negative) Trace Nitrites (Negative) Negative Protein (Negative) Negative Glucose (Negative) Negative Ketones (Negative) Negative Urobilnogen (0.2-1.0 EU) 0.2 Bilirubin (Negative) Negative Blood (Negative) Trace Departure - Departure Disposition: Home, Routine, Self-Care Clinical Impression: Dyspnea, Lightheaded, Bradycardia, Hypertension Condition: Good Instructions: Dyspnea (ED), Hypertension (ED) Additional Instructions: Read and follow provided instructions. Follow-up with your primary care physician tomorrow for re-evaluation as discussed. They should call you for appointment time. I spoke with the on- call physician for you're primary care physician's group tonight in the emergency department. Take your medication as prescribed. Return to the emergency department for worsening symptoms, worsening shortness of breath, chest pain, fever or other serious concerns. Referrals: KARTHIKEYAN VALENCIA [Non Staff Provider ()] - As per Instructions
[2018-09-08 17:12] LABS: INR 1.13 (0.83-1.16); PROTIME(PATIENT) 14.7 SEC (12.0-15.0)
--- NOTE | 2018-09-08 22:38 | CPEKG ---
Test Reason : OPEN Blood Pressure : / mmHG Vent. Rate : 053 BPM Atrial Rate : 053 BPM P-R Int : 225 ms QRS Dur : 096 ms QT Int : 466 ms P-R-T Axes : 054 -24 -04 degrees QTc Int : 438 ms Sinus rhythm Prolonged NC interval Left ventricular hypertrophy Confirmed by Kathie Shelby ([id number]) on 09/08/2018 10:37:25 PM Referred By: Kathie Shelby Confirmed By:Kathie Shelby
[2018-09-08 23:04] VITALS: BP 198/89
== END 2018-09-08 18:15 | disposition home or self-care (01) ==
LOC: CED 15:24
DX: R06.09 Other forms of dyspnea (principal); E86.9 Volume depletion, unspecified; R42 Dizziness and giddiness; R00.1 Bradycardia, unspecified; I10 Essential (primary) hypertension
CPT/HCPCS: 71275-PO; 80053-ER; 84484-ER; 96360-ER